=== PATIENT | male | born 1970 | race Caucasian/White ===

== ENCOUNTER 2022-12-05 10:10 | Outpatient (CLI) | payer BC, SELFPAY ==
--- NOTE | 2022-12-05 10:22 | ECG_ITS ---
Measurements Intervals [place] Rate: 54 P: 44 [place]: 157 QRS: 18 QRSD: 99 T: 18 QT: 408 QTc: 388 Interpretive Statements SINUS BRADYCARDIA NO PREVIOUS ECG AVAILABLE FOR COMPARISON Electronically Signed On 12-05-2022 10:57:32 CDT by Byron Quezada M.D.
== END 2022-12-05 10:11 | disposition home or self-care (01) ==
PROVIDERS: PCP Nurse Practitioner Family; Visit Provider Nurse Practitioner Family
DX: R00.1 Bradycardia, unspecified (principal)
CPT/HCPCS: 93005